=== PATIENT | female | born 1970 | race Two or more races ===

== ENCOUNTER 2023-05-16 14:07 | Emergency (ER) | payer BC ==
[~2023-05-16] VITALS: Ht 165.1 cm; Wt 81.0 kg
[2023-05-16 14:22] VITALS: O2SAT 99
[2023-05-16 18:58] VITALS: BP 147/95; PULSE 115; RESP 20; TEMP 98
== END 2023-05-16 19:00 | disposition home or self-care (01) ==
LOC: ER 14:07
DX: S20.219A Contusion of unspecified front wall of thorax, initial encounter (principal); I10 Essential (primary) hypertension; E78.00 Pure hypercholesterolemia, unspecified; E11.9 Type 2 diabetes mellitus without complications; V49.9XXA Car occupant (driver) (passenger) injured in unspecified traffic accident, initial encounter; Y93.89 Activity, other specified; Y92.89 Other specified places as the place of occurrence of the external cause; Y99.8 Other external cause status
CPT/HCPCS: 71045; 99283